=== PATIENT | male | born 1990 | race Caucasian/White ===

== ENCOUNTER 2017-02-03 18:45 | Emergency (ER) | payer OTHER ==
[2017-02-03 18:55] VITALS: TEMP 98.8; O2SAT 96
--- NOTE | 2017-02-03 19:43 | EDPHY ---
H & P Stated Complaint: [place] sharp pain in back of head last night;now has typical migraine - Personal History Current Tetanus Diphtheria and Acellular Pertussis (TDAP): Yes - Medical/Surgical History Other PMH: depression/anxiety/schizo. migraines - Social History Smoking Status: Current every day smoker Time Seen by Provider: 02/03/17 19:22 HPI/ROS: CHIEF COMPLAINT: migraine-like headache HISTORY OF PRESENT ILLNESS: A 26-year-old male history of chronic intermittent headaches describes a doing yoga last evening, was coming out of position when he felt sharp stabbing sudden onset left occipital headache , not described this really is thunderclap definitely described as sudden onset. He has been experiencing left-sided headache ever since with positive photophobia and nausea. States that it feels definitely different than his usual chronic headaches.No gait instability. No slurred speech. No head trauma. PRIMARY CARE PROVIDER: REVIEW OF SYSTEMS: A ten point review of systems was performed and is negative with the exception of the items mentioned in the HPI PAST MEDICAL & SURGICAL HISTORY: intermittent chronic headaches SOCIAL HISTORY: no drug use PHYSICAL EXAM (Prior to examination, patient consented to physical exam, hands were washed and my usual and customary physical exam procedures followed) 1) GENERAL: Well-developed, well-nourished, alert and oriented. Appears to be in no acute distress. 2) HEAD: Normocephalic, atraumatic 3) HEENT: Pupils equal, round, reactive to light bilaterally. Sclera anicteric. Nasopharynx, oropharynx, clear, no lesions. Ears bilaterally with normal tympanic membranes. 4) NECK: Full range of motion, no meningeal signs. 5) LUNGS: Clear auscultation bilaterally, no wheezes, no rhonchi, no retractions. 6) HEART: Regular rate and rhythm, no murmur, no heave, no gallop. 7) ABDOMEN: No guarding, no rebound, no focal tenderness, negative McBurney's, negative Watson's, negative Rovsing's, negative peritoneal sign, 8) MUSCULOSKELETAL: Moving all extremities, no focal areas of tenderness, no obvious trauma. No peripheral edema or discoloration. 9) BACK: No CVA tenderness, no midline vertebral tenderness, no fluctuance, no step-off, no obvious trauma, no visual or palpable abnormality. 10) SKIN: No rash, no petechiae. 11) Psychiatric: Patient is oriented X 3, there is no agitation. 12) NEURO: Awake, alert, and oriented to person, place and time. Answers questions appropriately. There were no obvious focal neurologic abnormalities. No cerebellar dysfunction. Cranial nerves 2 through to 12 intact. Normal steady gait. Upper and lower extremities bilaterally with strength 5 / 5, reflexes 2+. DIFFERENTIAL DIAGNOSIS: in no particular order, including but not limited to subarachnoid hemorrhage, migraine headache, tension headache and infectious causes such as meningitis, pharyngitis and sinusitis. The patient understands that this diagnosis is provisional and can never be 100% accurate. Usual and customary warnings were given concerning the clinical impression and all the patient's questions were answered. The patient was instructed to return to the emergency department should her symptoms worsen or return, or develop any new symptoms, otherwise to followup as directed in discharge instructions. This is a partial list of diagnoses considered. These considerations are based on history, physical exam, past history and reassessment. (Kerry Arechiga) Constitutional: Initial Vital Signs Temperature (C) 37.1 C 02/03/17 18:52 Heart Rate 96 02/03/17 18:52 Respiratory Rate 18 02/03/17 18:52 Blood Pressure 132/68 H 02/03/17 18:52 O2 Sat (%) 96 02/03/17 18:52 O2 Delivery Mode Room Air Allergies/Adverse Reactions: No Known Allergies Allergy (Unverified 02/03/17 18:49) Home Medications: Medication Instructions Recorded Benztropine Mesylate 0.5 mg PO 02/03/17 FLUoxetine [PROzac] 10 mg PO 02/03/17 Ranitidine HCl [Zantac] 150 mg PO 02/03/17 Topiramate [Topiramate ER] 25 mg PO 02/03/17 clonIDINE [Catapres (*)] 0.1 mg PO 02/03/17 risperiDONE [RisperDAL] 1 mg PO 02/03/17 traZODone [traZODONE 50MG (*)] 50 mg PO 02/03/17 Medical Decision Making ED Course/Re-evaluation: I did not see this patient while he was in the emergency department. However his care was discussed with the PA while the patient was in the department. I agree with treatment plan and management (Bijan Reyes) 9:50 p.m.: Re-evaluation, is feeling improvement, requests dose of analgesia, Toradol would be administered. Discussed his imaging results. Discussed limitations of imaging. Patient discussed his sudden onset headache, possibility of subarachnoid hemorrhage and recommended lumbar puncture. He declines this. States that he is feeling improvement and primarily want to come to the CT scan as he was concerned about underlying pathology. He is more than welcome to return to the emergency department at any point. (Kerry Arechiga) - Data Points Medications Given: Discontinued Medications Ketorolac Tromethamine (Toradol) 30 mg IVP EDNOW ONE Stop: 02/03/17 21:51 Last Admin: 02/03/17 22:03 Dose: 30 mg Departure - Departure Disposition: Home, Routine, Self-Care Clinical Impression: Headache Condition: Good Instructions: Acute Headache (ED) Additional Instructions: THANK YOU FOR YOUR VISIT TO OUR EMERGENCY DEPARTMENT (ED). YOU WERE SEEN TODAY BECAUSE OF A HEADACHE. YOU MAY HAVE HAD LAB TESTS, A CT SCAN, MRI OR EVEN A LUMBAR PUNCTURE (COMMONLY REFERRED TO A SPINAL TAP). WE CANNOT ALWAYS FIND THE EXACT CAUSE OF YOUR SYMPTOMS DURING YOUR VISIT TO THE ED. PLEASE FOLLOW UP WITH YOUR DOCTOR WITHIN 24 HOURS TO BE RECHECKED. RETURN TO THE ED IMMEDIATELY IF YOUR HEADACHE WORSENS, IF YOU DEVELOP A FEVER, NECK PAIN OR NECK STIFFNESS, OR IF YOU BECOME CONFUSED OR ABNORMALLY DROWSY. Referrals: Nahid Leija MD [Medical Doctor] - 2-3 days, call for appt.
[2017-02-03] MEDS ORDERED: IOPAMIDOL (ISOVUE 370) 100 ML BTL IV ONE (20:19)
[2017-02-03] MEDS ORDERED: KETOROLAC 30 MG/1 ML SDV IVP ONE (21:50)
[2017-02-03 22:24] VITALS: BP 126/76; PULSE 80; RESP 16
== END 2017-02-03 22:22 | disposition home or self-care (01) ==
DX: R51 Headache (principal); F17.200 Nicotine dependence, unspecified, uncomplicated
CPT/HCPCS: 82947-QW; 96374; J1885; Q9967

== ENCOUNTER 2018-07-28 14:57 | Inpatient (IN) | payer OTHER ==
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
[2018-07-28] MEDS ORDERED: LORazepam 2 MG/ML INJ IVP ONE (16:23)
[2018-07-28] MEDS ORDERED: LORazepam 1 MG TAB PO ONE (16:25)
[2018-07-28 19:33] LABS: PLATELET COUNT 230 10^3/uL (150-400)
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
--- NOTE | 2018-07-28 21:02 | ASMTTCLDSP ---
TLC Discharge Disposition Disposition: Answers: Admit Discharge Concerns/Recommendations: Notes: In consultation with [facility] ED physician Kate Morrison MD and on-call psychiatrist, Tete Buckley MD, both concurred that pt appears to meet 27-65 criteria requiring psychiatric hospitalization as pt appears to be at risk of harm to self due to a mental illness condition. Pt was read the Patient Rights and Responsibilities Statement on 07/28/2018 20:00, original placed on chart, and was given photocopy of Rights. Pt signed the Patient Rights. Pt was given the 3N prohibited belongings list while in the ED. For inpatient Tete Bukcley MD admission, the following psychiatrist agreed to accept patient for admission to Behavioral Health ([facility]): Date Signed: 07/28/2018 09:01 PM Electronically Signed By:Saira Mills
[2018-07-29] MEDS ORDERED: NICOTINE POLACRILEX 2 MG GUM B PRN (00:15)
[2018-07-29] MEDS ORDERED: MAG HYDROX/AL HYDROX/SIMETH 30 ML UDCUP PO PRN (00:15)
[2018-07-29] MEDS ORDERED: MAGNESIUM HYDROXIDE 30 ML UDCUP PO PRN (00:15)
[2018-07-29] MEDS: LORazepam 0.5 MG TAB PO PRN ×2 (01:28→12:38)
[2018-07-29] MEDS: ACETAMINOPHEN 325 MG TAB PO PRN ×2 (01:29→12:37)
[2018-07-29] MEDS: MELATONIN 3 MG TAB PO PRN ×2 (01:29→21:58)
[2018-07-29] MEDS: OLANZapine DISINTEGR 5 MG TAB PO PRN ×2 (01:29→21:58)
--- NOTE | 2018-07-29 10:18 | PDMN ---
Medical Necessity Medical necessity: Pt meets inpt criteria per MD order and [facility] [id number], Schizophrenia Spectrum Disorders, Adult: Inpatient Care, 6 days. 27 y/o w/ admitted w/unspecified schizophrenia spectrum disorder and other psychotic disorders, unspecified depressive disorders, on M1 hold due to risk of harm to self due to mental illness condition, requires inpt psychiatric hospitalization.
[2018-07-29] MEDS ORDERED: FLUoxetine 20 MG CAP PO ONE (11:15)
[2018-07-29] MEDS: guaiFENesin 200 MG/10 ML UDL PO PRN ×2 (12:38→21:58)
[2018-07-29] MEDS ORDERED: CEPACOL LOZENGE PO PRN (12:42)
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
--- NOTE | 2018-07-29 13:04 | ASMTCMCOM ---
CM Note CM Note Notes: CC met with pt. to compete MTP. Pt. reports going to [employer] in [facility] for assistance but felt it was "too triggering". Pt. stated he has been "driving everyone away" adding "unintentionly". Pt. stated he is not currently working and has recently been homeless. Pt. stated he has reached out to return to his home in [place] that he shares with roommates. Pt. reports being unsure about returning to this home, as one of his roommates is dating pt's ex-partner, pt. referred to her as the "love of my life". Pt. stated he would like to see a trauma specialist therapist, to get treatment for alcohol and to quit smoking. Pt. stated he would like information about AA, and possible some additional resources for the future. Pt. stated he has recently lost a lot of weight, adding he is down from 180lbs to 148lbs. Pt. requested a dietary consult RN notified. Pt. denies any current legal issues. Pt. reports drinking alcohol. "whenever I can" adding he often cannot afford it. Pt. reports drinking about once a week. Pt. reports he quit THC last . Pt. denies all other current substance use, pt. reports he was addicted to cocaine and heroin between the ages of [age]. Pt. presents as alert, bit irritated, somewhat calm, fair eye contact, bit unkempt, and cooperative. Staff report pt. sleeping 5.5 hours last evening and being medication complaint. CC to ask pt. to sign ROIs to establish follow up appointments. Date Signed: 07/29/2018 01:01 PM Electronically Signed By:Niya Serrano
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
[2018-07-29] MEDS: NICOTINE 21 MG/24 HR PATCH TD SCH (13:24)
[2018-07-29] MEDS: PRAZOSIN HCL 1 MG CAP PO SCH (21:58)
[2018-07-30] MEDS: guaiFENesin 200 MG/10 ML UDL PO PRN (08:26)
[2018-07-30] MEDS: FLUoxetine 20 MG CAP PO SCH (08:26)
[2018-07-30] MEDS: NICOTINE 21 MG/24 HR PATCH TD SCH (08:26)
[2018-07-30] MEDS: ACETAMINOPHEN 325 MG TAB PO PRN (08:26)
[2018-07-30] MEDS: LORazepam 0.5 MG TAB PO PRN ×2 (08:27→20:57)
--- NOTE | 2018-07-30 09:06 | ASMTCMCOM ---
CM Note CM Note Notes: CC checked in with ct. who presented as very anxious and depressed. When asked about his mood ct. responded "living, my mood is poor but better then it was". Ct. reported seeing a therapist at [facility] and he signed a TERRELL for her. He agreed to schedule a follow up appointment prior to discharge. Ct. reported that he has no support system. Parents live in [place] but are not aware of ct.'s admission. He refused to sign TERRELL for them. Date Signed: 07/30/2018 09:05 AM Electronically Signed By:Michelle Mendoza
--- NOTE | 2018-07-30 11:28 | SOAPPROG ---
SOAP Progress Note Assessment/Plan: Assessment: Major Depressive Disorder, with anxious distress, PTSD, ETOH abuse, Nicotine dependence. Slight improvement noted. (see subjective/objective note). Patient could benefit from continued inpatient hospitalization for crisis stabilization, safety, and medication evaluation. Plan: 1. Psychotropic medications: After reviewing options, risks, and benefits patient agrees to continue current medications. No other medication changes at this time as more time is needed to determine ongoing tolerability and efficacy. Plan is to continue to observe patient for response and side effects from medications, and ongoing monitoring and evaluation. 2. Review with patient informed consent and recommendations for psychotropic medication treatment listed below 3. Labs: no additional labs at this time 4. Therapy: continue milieu and group therapy 5. Further investigation including gathering information from patients relatives and review of past case records to inform treatment plan. 6. Safety/Wellness plan and follow-up outpatient appointments to be established prior to discharge. Next steps are for patient to meet with congregational care pastor to plan a safe discharge plan and establish outpatient services for ongoing treatment. 7. Confer with inpatient treatment team regarding treatment plan. 8. Psychosocial stressors addressed through sample case porter. 9. Legal status: M1 10. Consider discharge next week if patient is in stable condition, safe, and has a safe discharge plan. 11. Substance abuse interventions: alcohol and nicotine PSYCHOTROPIC MEDICATION TREATMENT INFORMED CONSENT and RECOMMENDATIONS: Review nature of condition, diagnosis, and prognosis. Review nature and purpose of psychotropic medication treatment. Review type of psychotropic medications being ordered. Review risk and benefits of psychotropic medication treatment. Review probable length of time patient will need to take medications. Review risk and benefits of not undergoing psychotropic medication treatment. Review alternative treatments to psychotropic medications. Review psychotropic medications contraindications, drug-drug interactions, side effects, and importance of reporting any side effects to a psychiatric provider or nurse during inpatient hospitalization, and upon discharge to patients psychiatric outpatient provider, primary care provider, or other health care transition mgr. Review importance of asking a nurse, psychiatric provider, or primary care provider any questions or problems concerning the psychotropic medications. Verify patient understands the information that has been provided, and understands, accepts, and agrees to psychotropic medications. Review patients safety plan and importance of patient to report to staff while hospitalized if patient is ever a danger to self/others, or unable to care for self, and upon discharge, the importance for patient to contact [facility] or [facility], or go to the nearest emergency room, if patient is ever a danger to self/others, or unable to care for self. Recommend that upon discharge patient establish medication management treatment with a psychiatric provider, establishes routine therapy appointments, and follow-up with primary care provider. Verify patient understands and agrees to these recommendations. 07/30/18 11:27 Subjective: Following up with patient for evaluation of depression, anxiety, and safety. Patient reports, "Feeling a little better, got some sleep finally." Patient expresses the following psychiatric symptoms moderate anxiety. Patient reports taking medications as prescribed, and describes response to medications as fair ; reports able to sleep better last night, reports no night terrors/nightmares. Patient does not report undesirable side effects from the medications, and agrees to continue current medications. Patient requests assistance with ETOH abuse treatment and nicotine cessation. Patient expresses interest in following up on outpatient basis for treatment and for PTSD treatment. Objective: Vital Signs Temp Pulse Resp BP Pulse Ox 36.3 C 86 20 106/65 96 07/30/18 06:00 07/30/18 06:00 07/30/18 06:00 07/30/18 06:00 07/30/18 06:00 NURSING REPORT: Consulted with nursing for update on patients progress in treatment. Nurses report patient is engaged in treatment, is attending groups, slept 8 hours, expresses the following psychiatric symptoms: moderate, exhibits the following psychiatric symptoms: anxious, is eating all meals, is agreeable to medications and taking as prescribed with no report of side effects, with no s/s of EPS/akathisia, and denies SI/HI, denies A/V hallucinations, and denies delusions. PROCESS SAFETY MANAGEMENT ENGINEER UPDATE: Establish follow up for ongoing treatment on outpatient basis. MSE: The patient is an under-nourished male looking older than chronological age. Attire is appropriate and dress is hospital garb. Grooming status is inappropriate and disheveled. Ambulation is independent. Gait is normal and coordinated. Posture is normal and relaxed. Eye contact is appropriate. Motor activity is appropriate with purposeful, organized, coordinated movements ; with no involuntary movements. Attitude is cooperative. Patient appears attentive and relates well to this interviewer. Language production is spontaneous. R/R/V normal. Articulation is clear. Patient reports mood as okay with congruent and appropriate affect. Patients thought process is improved; fairly linear and logical. Patient denies suicidal thoughts, denies homicidal ideation. Patient denies auditory, visual hallucinations. Patient denies delusions. Patient does not appear to be attending to internal stimuli. Patients attention and concentration are fair. Patient is oriented to person , place. Patients insight and judgment are fair. SUBSTANCE ABUSE BRIEF INTERVENTION: Brief intervention regarding the risks of alcohol and nicotine abuse is provided to patient with goal to reduce the risk of harm that could result from the continued use of alcohol and nicotine, with the general aim to investigate the problem, raise awareness of problem, develop a solution with the patient, recommend a specific change or activity, and motivate the patient toward change. Assess substance abuse behavior and give supportive advice about harm reduction, recommend a reduction in hazardous/at- risk consumption patterns, and facilitate referrals for additional specialized treatment with congregational care pastor. Intermediate goal is for the patient to quit and attend outpatient substance abuse treatment. Intervention focus on intermediate goals to allow for more immediate success in the treatment process to keep the patient motivated. Review following with patient: Cannabis use risks: Short-term use: impaired short-term memory, impaired motor coordination, altered judgement, in high doses paranoia and psychosis. Long-term use addiction, diminished life satisfaction and achievement, symptoms of chronic bronchitis, and increased risk of chronic psychosis disorders if predisposition to such disorders. In withdrawal anger, aggression irritability, anxiety and nervousness, decreased appetite or weight loss, restlessness, and sleep difficulties with strange dreams. Alcohol/Binge Drinking risks: short-term: injuries, violence, alcohol poisoning, risky sexual behaviors. Long-term: high blood pressure, stroke, liver disease, digestive problems, cancer, learning and memory problems, depression and anxiety, social problems, and alcohol dependence. Nicotine dependence: lung cancer, other cancers, heart and circulatory system problems, diabetes, eye problems, infertility and impotence, more prone to respiratory infections, weakened senses, teeth and gum disease, premature aging, second hand smoke. Withdrawal symptoms include strong cravings , anxiety, irritability, restlessness, difficulty concentrating, depressed mood , frustration, anger, increased hunger, insomnia, and constipation or diarrhea. OUTPATIENT SUBSTANCE ABUSE TREATMENT: Patient referred to outpatient provider and treatment for continued treatment related to substance abuse. - Time Spent With Patient Time Spent With Patient: 25 minutes, met with patient individually and with patient and treatment team. - Pending Discharge Pending Discharge Within 24 Hours: No Pending Discharge Within 48 Hours: No ICD10 Worksheet Patient Problems: Problems Problem Status Onset Depression Acute Suicidal ideation Acute
--- NOTE | 2018-07-30 14:57 | ASMTBHDC ---
Notes Note: Notes: Barbara from [facility] called. Per Barbara [facility] does not have on going MH services. Barbara recommended ct. be referred to providers in the community. Barbara suggested a referral to [facility]. Let Barbara know that ct. has commercial insurance and would not get psychiatric care from [facility] only therapy if he so choose. Barbara refed ct. to Kailyn Espinoza [facility] conduct officer ([phone]) for a re-entry meeting. [facility] is in spring break all of next week and there are no student services until August 10. Date Signed: 07/30/2018 02:57 PM Electronically Signed By:Michelle Mendoza
[2018-07-30] MEDS ORDERED: NICOTINE POLACRILEX 2 MG GUM B PRN (18:11)
[2018-07-30] MEDS: MELATONIN 3 MG TAB PO PRN (20:34)
[2018-07-30] MEDS: PRAZOSIN HCL 1 MG CAP PO SCH (20:34)
[2018-07-30] MEDS: OLANZapine DISINTEGR 5 MG TAB PO PRN (20:34)
[2018-07-31 07:01] VITALS: BP 107/61
[2018-07-31] MEDS: FLUoxetine 20 MG CAP PO SCH (08:24)
[2018-07-31] MEDS: NICOTINE 21 MG/24 HR PATCH TD SCH (08:24)
--- NOTE | 2018-07-31 11:51 | BDS ---
[f rep st] BEHAVIORAL HEALTH DISCHARGE SUMMARY REASON FOR ADMISSION: From the ED note dated 07/28/2018, patient with a history of depression and anxiety presented to the emergency department. The patient reported becoming more depressed recently. The patient was admitted involuntarily on an M1 hold due to being a danger to himself. The patient was admitted for safety, crisis stabilization, and medication evaluation. ADMITTING DIAGNOSES: 1. Major depressive disorder, recurrent episode, severe, with anxious distress. 2. Posttraumatic stress disorder. 3. Alcohol use disorder, severe dependence. 4. Nicotine dependence. ADMISSION PHYSICAL EXAM: Patient was seen for history and physical consultation on 07/29/2018 for medical clearance for inpatient psychiatric hospitalization and treatment. The patient was medically cleared for inpatient psychiatric hospitalization treatment. For further details, please refer to consultation document dated 07/29/2018. ADMISSION LABS: 1. CBC within normal limits except white blood cells were elevated at 12.32, neutrophils elevated at 74.6, eosinophils low at 0.4, basophils low at 0.2, absolute neutrophils elevated at 9.18. 2. BMP within normal limits except glucose was elevated at 114. A1c within normal limits at 5.2. 3. Liver function within normal limits. 4. Lipid panel within normal limits except cholesterol was low at 105, LDL cholesterol calculated low at 57, non-HDL cholesterol low at 71, and HDL cholesterol low at 34. 5. Toxicology screen non-negative for THC, negative for the other substances screened, and negative for ethyl alcohol. MAJOR PROCEDURES OR TESTS: None. HOSPITAL COURSE: The most prominent symptoms and behaviors while the patient was here were reports of severe anxiety and depression. Treatment modalities utilized were milieu and group therapy. Prozac 20 mg p.o. daily was continued to target mood symptoms, was tolerated with no report of side effects. Prazosin 1 mg p.o. at bedtime was started to target nightmares due to posttraumatic stress disorder. Medication was tolerated with no report of side effects and with good response. Patient has improved considerably with no signs of psychiatric symptoms and no psychiatric symptoms expressed. Patient reports he has improved since admission, states to be in stable condition, feels safe to discharge, and he contracts for safety. Patients response to treatment was good. There were no adverse or unexpected results of treatment. The patient was safe throughout stay, active in treatment, engaged in groups, and was appropriate with staff. Patient met with treatment team prior to discharge to assess readiness to discharge and review discharge plan. The treatment team consensus is the patient in stable condition, has a safe discharge plan, and is ready to discharge today. CONDITION AT DISCHARGE: Patient is in stable condition and is no longer a danger to self or others, and is not gravely disabled due to mental illness. Patient is no longer in need of inpatient level of care, and can be safely and effectively treated within the community. The patients level of risk at time of discharge is low. MSE: The patient is casually dressed and with good hygiene , and looks stated age. Patient is sitting, posture is upright, and position is relaxed. Patient appears awake, alert, and responds appropriately and reasonably during interview. Patient is engaged, relates well to interviewer, and emotional facial expression is appropriate to situation and changes appropriately with topic. Patient is cooperative, makes comfortable eye contact , and movements are voluntary, deliberate, coordinated, and smooth and even with no inappropriate movements. Patient makes laryngeal sounds effortlessly and shares conversation appropriately; pace of conversation is appropriate, and stream of talking is fluent; articulation is clear and understandable; word choice is effortless and appropriate for education level; completes sentences, occasionally pausing to think; rate and volume are appropriate for interview and setting. Patient reports mood as euthymic. Patients affect is stable with full variable range, congruent with mood, and appropriate to speech and circumstances. Patient has linear and logical thinking, with no loose associations, tangential thought, thought blocking, concrete thinking, or any other signs of formal thought disorder. Patient denies suicidal and homicidal ideation, and denies hallucinations and delusions. Patient appears to be a reliable historian with sound judgement and good insight into current condition. Patient has no apparent dysfunction in recent or remote memory noted , and no evidence of gross cognitive dysfunction noted at any point during the interview. DISCHARGE DIAGNOSES: 1. Major depressive disorder, recurrent episode, severe, with anxious distress. 2. Posttraumatic stress disorder. 3. Alcohol use disorder, severe dependence. 4. Nicotine dependence. CURRENT MEDICATIONS: After reviewing options, risks, and benefits with the patient, the patient agrees to continue: 1. Prozac 20 mg p.o. daily. 2. Prazosin 1 mg p.o. at bedtime. The patient requests prescriptions for these medications at time of discharge. Prescriptions for 30 days are provided. The prescriptions are reviewed with the patient at time of discharge to ensure accuracy and patient understanding. DISPOSITION: Patient left hospital independently and voluntarily. FOLLOWUP: pediatric care coordinator reports the appropriate outpatient follow-up services have been established and outpatient appointments have been scheduled. The patient received written instructions with times and dates of outpatient follow-up appointments. The following follow-up recommendations were provided to the patient at discharge: Continue psychotropic medications as prescribed and attend appointments as scheduled. Report any side effects to a psychiatric outpatient provider, a primary care provider, or other health memory care director. Address any questions or problems concerning the psychotropic medications with a psychiatric outpatient provider, a primary care provider, or other health memory care director. Contact [facility] or [facility], or go to the nearest emergency room, if you are ever a danger to yourself/others, or unable to care for yourself. As soon as possible, establish a routine medication management treatment with a psychiatric provider, establish routine therapy appointments, and follow-up with a primary care provider. SUBSTANCE ABUSE BRIEF INTERVENTION: Brief intervention regarding the risks of alcohol and nicotine abuse is provided to patient with goal to reduce the risk of harm that could result from the continued use of alcohol and nicotine, with the general aim to investigate the problem, raise awareness of problem, develop a solution with the patient, recommend a specific change or activity, and motivate the patient toward change. Assess substance abuse behavior and give supportive advice about harm reduction, recommend a reduction in hazardous/at- risk consumption patterns, and facilitate referrals for additional specialized treatment with care management associate. Intermediate goal is for the patient to quit and attend outpatient substance abuse treatment. Intervention focus on intermediate goals to allow for more immediate success in the treatment process to keep the patient motivated. Review following with patient: Cannabis use risks: Short-term use: impaired short-term memory, impaired motor coordination, altered judgement, in high doses paranoia and psychosis. Long-term use addiction, diminished life satisfaction and achievement, symptoms of chronic bronchitis, and increased risk of chronic psychosis disorders if predisposition to such disorders. In withdrawal anger, aggression irritability, anxiety and nervousness, decreased appetite or weight loss, restlessness, and sleep difficulties with strange dreams. Alcohol/Binge Drinking risks: short-term: injuries, violence, alcohol poisoning, risky sexual behaviors. Long-term: high blood pressure, stroke, liver disease, digestive problems, cancer, learning and memory problems, depression and anxiety, social problems, and alcohol dependence. Nicotine dependence: lung cancer, other cancers, heart and circulatory system problems, diabetes, eye problems, infertility and impotence, more prone to respiratory infections, weakened senses, teeth and gum disease, premature aging, second hand smoke. Withdrawal symptoms include strong cravings , anxiety, irritability, restlessness, difficulty concentrating, depressed mood , frustration, anger, increased hunger, insomnia, and constipation or diarrhea. OUTPATIENT SUBSTANCE ABUSE TREATMENT: Patient referred to outpatient provider and treatment for continued treatment related to substance abuse. LEGAL COURSE: The patient was admitted on an M1 hold for involuntary inpatient psychiatric hospitalization and treatment. The patient discharged today independently and voluntarily. ATTITUDE AT TIME OF DISCHARGE: The patients attitude was positive at time of discharge, and patient reports looking forward to discharging today. The patient reports he feels safe to discharge, is no longer a danger to himself or others, is in stable condition, and contracts for safety. Patient states he will continue medications as prescribed, and establish medication management treatment with an outpatient provider after discharge. Patient reports he understands the information that has been provided to him, and he understands, accepts, and agrees to psychotropic medications. Patient describes internal protective factors as the coping skills he has learned while hospitalized here, and he plans to continue to practice these coping skills after discharge. FAMILY MEETING: This EMBOSSING PRESS OPERATOR and patient calls patient's roommate to speak to him about patient returning to live with him. Roommate states he is okay with this plan, and communicates no concerns regarding patient returning to their shared living space. LABS AND RADIOLOGY STUDIES: There were no pending labs or studies at time of discharge. ADVANCE DIRECTIVES: There were no advance directives on file, and patient was full code during this hospitalization. The following psychotropic medication treatment informed consent and recommendations were provided to the patient at time of discharge. Patient reports he understands, accepts, and agrees to the information that has been provided. PSYCHOTROPIC MEDICATION TREATMENT INFORMED CONSENT and RECOMMENDATIONS: Review nature of condition, diagnosis, and prognosis. Review nature and purpose of psychotropic medication treatment. Review type of psychotropic medications being prescribed. Review risk and benefits of psychotropic medication treatment. Review probable length of time will need to take medications. Review risk and benefits of not undergoing psychotropic medication treatment. Review alternative treatments to psychotropic medications. Review psychotropic medications contraindications, side effects, and importance of reporting any side effects to a psychiatric provider, primary care provider, or other health memory care director. Review importance of asking a psychiatric provider or primary care provider any questions or problems concerning the psychotropic medications. Review safety plan and the importance to contact [facility] or [facility] , or go to the nearest emergency room, if ever a danger to yourself/others, or unable to care for yourself. Recommend upon discharge to establish routine medication management treatment with a psychiatric provider, establish routine therapy appointments, and follow-up with a primary care provider. Verify patient understands, accepts, and agrees to the information that has been provided. /[id number]
== END 2018-07-31 13:07 | disposition home or self-care (01) | DRG 885 ==
LOC: BBEH 07-29 00:30
PROVIDERS: ADMIT Psychiatry & Neurology Behavioral Neurology & Neuropsychiatry; ATTEND Psychiatry & Neurology Behavioral Neurology & Neuropsychiatry
DX: F33.9 Major depressive disorder, recurrent, unspecified (principal); F43.10 Post-traumatic stress disorder, unspecified; F10.20 Alcohol dependence, uncomplicated; F17.210 Nicotine dependence, cigarettes, uncomplicated; F41.9 Anxiety disorder, unspecified
CPT/HCPCS: 80305; G0480